=== PATIENT | female | born 1960 | race Caucasian/White ===

== ENCOUNTER 2018-04-16 08:57 | Inpatient (IN) | payer MEDICARE, MEDICAID ==
[2018-04-16 09:32] VITALS: BP 111/72
[2018-04-16] MEDS ORDERED: Magnesium Hydroxide (MOM) 30 mL UDC PO PRN (10:21)
[2018-04-16] MEDS ORDERED: Maalox 30 mL Cup PO PRN (10:21)
--- NOTE | 2018-04-16 10:40 | History & Physical ---
ADMIT DATE: 04/16/2018 MEDICAL HISTORY AND PHYSICAL PATIENT'S IDENTIFICATION: A 57-year-old female. REQUESTING PHYSICIAN: Dr. Almaraz. CHIEF COMPLAINT: "I am fine." HISTORY OF PRESENT ILLNESS: A 57-year-old female presented to [facility] by police for psychiatric evaluation, when the patient was noted to have a screaming and yelling at staff and police. The patient was placed on hold and now has been transferred to Geropsych Unit here at [facility]. PAST MEDICAL HISTORY: Negative for diabetes, hypertension, hyperlipidemia, kidney disease, or liver disease. MEDICATIONS: Currently medication list has been reviewed. ALLERGIES: The patient is not allergic to medications. SOCIAL HISTORY: She lives with a roommate. She has a history of smoking cigarette. No alcohol or drug use. FAMILY MEDICAL HISTORY: Negative for diabetes, hypertension, kidney disease, or liver disease. PAST SURGICAL HISTORY: The patient refused to say. MENSTRUAL AND GYNECOLOGIC HISTORY: The patient is menopausal. REVIEW OF SYSTEMS: The patient currently denies any headache, blurred vision, double vision, dysphagia, odynophagia, runny nose, stuffy nose, fever, chills, cough, chest pain, shortness of breath, palpitation, dizziness, nausea, vomiting, diarrhea, dysuria, hematuria, hematochezia, melena. No history of any seizure or syncopal episode. No weight loss or weight gain. PHYSICAL EXAMINATION: GENERAL: The patient is alert, awake, oriented, lying in the bed without any acute distress. VITAL SIGNS: Temperature 98.6, pulse is 74, respiratory rate 18, blood pressure 122/84. SKIN: Warm to touch. Adequate skin turgor. No petechia, no purpura. HEENT: Normocephalic, atraumatic. Extraocular muscles are intact. Tongue more pink and coated. Poor dentition noted. No oral lesion. No bleed, no sinus tenderness. External auditory canal and tympanic membranes are well visualized. NECK: Supple, no JVD, no hepatojugular reflex. No lymphadenopathy, thyromegaly or carotid bruit. HEART: Both heart sounds are regular. No S3, no S4, no murmur. CHEST AND LUNGS: Equal in expansion, no expiratory wheezing. ABDOMEN: Soft. No guarding, no rigidity. Liver, spleen palpable. No palpable mass. EXTREMITIES: No edema, no cyanosis or clubbing. Peripheral pulses +2. No calf tenderness noted. EXTERNAL GENITALIA, RECTAL EXAMINATION, BREASTS EXAMINATION: Not done at the patient request. NEUROLOGIC: Alert, awake, oriented to time, place, person. 2-12 cranial nerves are intact. Power in upper or lower extremities is 5+. Sensation to touch are intact. Babinskis in both toes are going down. No cerebellar sign. AVAILABLE DIAGNOSTIC DATA: White count of 9.2, hemoglobin 14.7, platelet count of 228. Sodium 132, potassium 3.2, chloride 102, CO2 of 29, BUN and creatinine is 8 and 0.7. Liver functions are normal. Urine drug screen was negative. Urinalysis was unremarkable. CLINICAL IMPRESSION: 1. Psychiatric disorder exacerbation. 2. Hypokalemia. 3. Microscopic hematuria. PLAN: 1. Recheck BMP. 2. Recheck urinalysis. 3. Psychiatric evaluation and management deferred to psychiatrist. 4. The patient is medically stable to participate in active Geropsych Unit. 5. The patient has been advised to see her sqe upon discharge for followup. 6. Care approved. 7. Age appropriate health maintenance has been discussed. 8. I sincerely thank you, Dr. Almaraz, for giving me the opportunity to participate the patient of yours. [facility]# [id number]
--- NOTE | 2018-04-16 16:27 | Psychiatric Evaluation ---
DATE OF SERVICE: 04/16/2018 The patient is currently in the hospital on a hold written on 04/14/2018 for danger to others, gravely disabled. The patient was disorganized, tangential, yelling and attempting to strike staff, agitated. Does not know where she is, states that her son is the assistant district attorney for [employer] and that she is "traveling" and "wandering around." CHIEF COMPLAINT: "What he wants." HISTORY OF PRESENT ILLNESS: A 57-year-old female, disoriented, confused, rambling nonsensically, placed on a hold for grave disability, danger to others, confused, disoriented, striking out behaviors, combative behaviors. States she is in the hospital to "get her meals." States, she is just passing through, going from one hospital to the next. The patient was uncooperative on initial exam, states that she can refuse medications due to the LPS act. States that her son works in [place] for president [employer]. PAST PSYCHIATRIC HISTORY: Hospitalizations in the past. SOCIAL HISTORY: "I do not know where I was born." States she has a son who is 35 who works for the president, refusing to tell me where she lives. Unclear drugs, alcohol or tobacco. MEDICATIONS: Noted. MEDICAL HISTORY: Please see full H and P. MENTAL STATUS EXAMINATION: Stated age. Fair eye contact. Speech: Mumbling to self. Mood "okay." Affect flat. Thought processes, she seemed to be disorganized, responding to internal stimuli. No SI, no HI. Insight and judgment diminished. PROVISIONAL DIAGNOSES: Schizophrenia, poor medication and treatment compliance. MEDICAL: Please see full H and P. ESTIMATED LENGTH OF STAY: 7-10 days. Pain is 8/10. ASSESSMENT: The patient is disorganized, psychotic appearing, in on a hold. PLAN: Start Risperdal. TREATMENT PLAN: Includes group as well as milieu therapy. CONDITIONS FOR DISCHARGE: Improved mood, improved affect, better control of her psychotic symptoms. JOB# [id number]
[2018-04-16 19:57] LABS: ALB/GLOB RATIO 0.9 (1.0-1.8); ALBUMIN 3.6 gm/dL (3.7-5.3); BILIRUBIN,TOTAL 0.3 mg/dL (0.3-1.0); CALCIUM SERUM 9.5 mg/dL (8.6-10.3); CARBON DIOXIDE 25.5 mEq/L (21.0-31.0); CREATININE - SERUM 1.4 mg/dL (0.6-1.2); GFR AFRICAN-AMERICAN 49.5 ml/min (>90); GFR NON AFRICAN-AMERICAN 40.9 ml/min; POTASSIUM SERUM 3.5 mEq/L (3.5-5.1); TOTAL PROTEIN,SERUM 7.5 gm/dL (6.0-8.3)
[2018-04-17] MEDS: Multivitamin Tab PO SCH (08:24)
--- NOTE | 2018-04-17 09:38 | Progress Notes ---
DATE: IDENTIFICATION: A 57-year-old female. SUBJECTIVE: The patient seen and examined. The patient is walking in the hallway. The patient remained agitated and confused. Upon questioning, the patient denies any chest pain, short of breath, palpitation, dizziness, nausea, or vomiting. OBJECTIVE: VITAL SIGNS: Temperature 97.7, pulse 80, respiratory rate 20, and blood pressure 100/56. HEENT: No facial asymmetry. NECK: Supple, no JVD. HEART: Regular. CHEST: Lung equal in expansion, no expiratory wheezing. ABDOMEN: Soft. No guarding, no rigidity. Bowel sounds present. No palpable mass. EXTREMITIES: No edema. AVAILABLE DIAGNOSTIC DATA: BUN and creatinine are 29 and 1.4, potassium 3.5, glucose 116, albumin 3.6. CLINICAL IMPRESSION: 1. Elevated BUN and creatinine, probably prerenal azotemia. Cannot rule out other etiology of chronic kidney disease. 2. Mild hyperglycemia. 3. Psychotic disorder. PLAN: 1. Encouraged to drink plenty of fluids orally. 2. Recheck BMP, magnesium, and also check glycohemoglobin A1c. 3. Psych medication and follow up as per psychiatrist. Care plan reviewed. JOB# [id number]
[2018-04-17] MEDS ORDERED: Haloperidol Lactate 5 mg/mL 1mL Vial IM ONE (11:53)
--- NOTE | 2018-04-18 06:13 | Progress Notes ---
DATE: 04/17/2018 SUBJECTIVE: The patient stuffing linens down the toilet, bizarre, symptomatic, psychotic behaviors, talking about Satan, mumbling to self, very disheveled, disorganized, psychotic appearing, gravely disabled, not making any sense, keeps mentioning the LPS act. ASSESSMENT: The patient is bizarre, stuffing linens down the toilet. The patient requiring emergency medication x 1 now, Haldol cocktail. PLAN: We will continue to monitor and initiate a 14-day hold. JOB# [id number]
[2018-04-18] MEDS: Multivitamin Tab PO SCH (08:24)
--- NOTE | 2018-04-18 18:31 | Progress Notes ---
DATE: 04/18/2018 SUBJECTIVE: The patient has been stuffing linens down the toilet. States that she does not want to talk to me because "I am LPS," refusing medications because of "LPS." Noted to be gravely disabled, bizarre. States she lives at an undisclosed location. Medications were reviewed. Poor compliance. Staff concerned about safety and she is pretty disorganized, disheveled, and unkempt. 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 ASSESSMENT: The patient is bizarre, refusing medication. Has a tendency to stop the paper towels and tissues down the toilet. PLAN: We will continue to monitor given her ongoing symptoms, she is not safe for discharge. I will likely need to file a Riese petition. JOB# [id number]
[2018-04-19] MEDS: Multivitamin Tab PO SCH (08:00)
--- NOTE | 2018-04-19 17:52 | Progress Notes ---
DATE: 04/19/2018 SUBJECTIVE: The patient states that she is not a mental health patient. When I asked her why she is here, she refers to the penal code and gives me the badge number of an officer in [place], very paranoid, bizarre, mood labile, very suspicious. 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 Gravely disabled. Poorly oriented. ASSESSMENT: The patient is psychotic, bizarre, unable to care for her basic needs, bizarre behaviors, refusing treatments. PLAN: We will continue to monitor. I did file a Riese petition. JOB# [id number]
[2018-04-20] MEDS: Multivitamin Tab PO SCH (08:25)
[2018-04-20] MEDS ORDERED: Haloperidol Lactate 5 mg/mL 1mL Vial IM PRN (09:46)
--- NOTE | 2018-04-20 21:51 | Progress Notes ---
DATE: 04/20/2018 The patient stating that she does not take medications that she is on a mental health patient, still disorganized, bizarre, mumbling to self, talking about Satan and the devil, hyper-shinto concerns that she will continue to stop linens down the toilet. The patient disorganized, making nonsensical statements clearly and grossly psychotic. ASSESSMENT AND PLAN: The patient unpredictable, paranoid, repetitive, disorganized. PLAN: Edwina mortensen. Start Haldol. JOB# [id number]
[2018-04-21] MEDS: Multivitamin Tab PO SCH (08:22)
--- NOTE | 2018-04-21 08:36 | Progress Notes ---
DATE: 04/21/2018 DATE OF SERVICE: 04/21/2018 SUBJECTIVE: The patient is currently in the hospital, psychotic, flushing linens down the toilet, hyper-yarsanism, bizarre, very paranoid, unruly behaviors. The patient required emergency medications yesterday for agitation, psychotic agitation. The patient on face just repeating "get down behind me", "get down behind me", "get down behind me" over and over again, then calling these clinicians an idiots, telling me, I have no , no friends, no life, no family, very angry, does not want take the medications. Riese was upheld. On a positive note, she slept well last night. ASSESSMENT: The patient is disheveled, unkempt, psychotic appearing, ruminative clearly, and overtly responding to internal stimuli. PLAN: We will continue to monitor. Continue Haldol. We will order in the next few days Haldol decanoate. JOB# [id number]
--- NOTE | 2018-04-21 19:29 | Progress Notes ---
DATE: 04/21/2018 DATE OF SERVICE: 04/21/2018 SUBJECTIVE: The patient seen and examined. The patient is ambulatory. The patient is alert, confused, and delusional at times. The patient has a fair appetite. The patient denies any , unable to get a meaningful history. OBJECTIVE: VITAL SINGS: Temperature 98.3, pulse 78, respiratory rate is 20, blood pressure 120/70. HEENT: No facial asymmetry. NECK: Supple, no JVD. HEART: Regular. CHEST AND LUNGS: Equal in expansion, no expiratory wheezing. ABDOMEN: Soft. No guarding, no rigidity. Bowel sounds are present. No palpable mass. EXTREMITIES: No edema, no cyanosis. NEUROLOGIC: Alert, awake. No gross neuro deficit noted. CLINICAL IMPRESSION: 1. Psychotic disorder exacerbation, currently receiving psych care. 2. History of hypokalemia and microscopic hematuria. PLAN: The patient did have elevated creatinine of 1.4. We will reevaluate BMP and urinalysis and will give further recommendations. Care plan reviewed and discussed. JOB# [id number]
[2018-04-22] MEDS: Multivitamin Tab PO SCH (08:52)
--- NOTE | 2018-04-23 02:44 | Progress Notes ---
DATE: 04/22/2018 SUBJECTIVE: The patient in the hospital, disorganized, paranoid, delusional. The patient was talking about the devil yesterday, calmer today, "doctor I hope you have a good day", isolative, withdrawn, still mumbling to self, talking to self, observed to be mumbling to self, touching unseen objects on the floor. The patient states her name is Elida not Yenifer as Yenifer. The patient is believing there is a cat on the floor. ASSESSMENT: The patient is bizarre, delusional, psychotic. PLAN: We will continue to monitor. Initiate Haldol decanoate today. Given her ongoing symptoms, she is quite bizarre and psychotic, unable to be cared for at a lower level of care due to her gross psychotic symptoms. JOB# [id number]
[2018-04-23] MEDS: Multivitamin Tab PO SCH ×2 (08:39→09:09)
--- NOTE | 2018-04-23 15:00 | Progress Notes ---
DATE: 04/23/2018 SUBJECTIVE: The patient is calmer, states "you look very nice today doctor". The patient is still talking about the devil, noting that the voices do not talk to her too much, "The devil does not talk to me too much." The patient getting Haldol Decanoate. Still does not know where she lives, still touching unseen objects, psychotic appearing, but significantly calmer, seems less distressed by perceptual disturbances, more open to giving me information about where she lives, noting that she had been staying in [place], currently now in [place] for some unclear reason. ASSESSMENT: The patient internally preoccupied, disorganized, poor historian, but significantly calmer, more amenable to treatment. Medications were noted. No EPS Continue Haldol. JOB# [id number]
[2018-04-24] MEDS: Multivitamin Tab PO SCH (09:01)
--- NOTE | 2018-04-24 11:21 | Progress Notes ---
DATE: 04/24/2018 SUBJECTIVE: The patient in the hospital, noted to be somewhat brighter, asking to leave, states she has a home to go to, but wants to be homeless discharge. States she is on vacation in [place], wandering in the streets, bizarre, poorly oriented, preoccupied, mumbling to self and guarded about her address "that is personal." The patient remains impulsive, unpredictable, given her ongoing psychotic symptoms. The patient did get Haldol Decanoate seems to be showing signs of improvement. ASSESSMENT: The patient is paranoid, still bizarre, odd. Medications were noted. We will continue to monitor, titrate medications, adjust medications. [facility]# [id number]
[2018-04-25] MEDS: Multivitamin Tab PO SCH (08:18)
--- NOTE | 2018-04-25 16:32 | Progress Notes ---
DATE: 04/25/2018 SUBJECTIVE: The patient with ongoing psychotic symptoms, talking about the transit authority police officer in [place] bringing her here, nonsensical, ruminative, paranoid, suspicious, wandering behaviors, impulsive, unpredictable, gravely disabled. ASSESSMENT: The patient remains symptomatic, paranoid, bizarre. PLAN: We will continue to monitor. The patient will likely benefit from dose titration of Haldol. We will increase her dosing from 5-7 mg twice daily. [facility]# [id number]
[2018-04-26] MEDS: Multivitamin Tab PO SCH (08:07)
--- NOTE | 2018-04-26 10:34 | Progress Notes ---
DATE: 04/26/2018 The patient mumbling to self, delusional, bizarre, that she has been attacked by multiple staff members, responding to internal stimuli, asking for the LPS book, highly delusional, seems to be responding heavily to internal stimuli, disheveled, unkempt. ASSESSMENT: The patient remains symptomatic, bizarre, gravely disabled, grossly psychotic. PLAN: We will continue to monitor. We will increase her Haldol dosing today. JOB# [id number]
[2018-04-26] MEDS: HALOPERIDOL PO SCH (16:25)
[2018-04-27 07:57] LABS: CHOLESTEROL 172 mg/dL (<200); HDL -HIGH DENSITY LIPOPROTEIN 51 mg/dL (23-92); TRIGLYCERIDES 98 mg/dL (<150)
[2018-04-27] MEDS: Multivitamin Tab PO SCH (08:50)
[2018-04-27] MEDS: HALOPERIDOL PO SCH (08:51)
--- NOTE | 2018-04-27 14:43 | Progress Notes ---
DATE: 04/27/2018 SUBJECTIVE: The patient remains symptomatic, psychotic, trying to flood the toilet, acting bizarre, ongoing concerns about her psychosis. States that she plans to walk [place], going into other patients' rooms, acting strange, disoriented. ASSESSMENT: The patient bizarre, flooding the toilet, requiring a lot of staff intervention. PLAN: We will continue to monitor, increase dosing of Haldol today. We will initiate Depakote. We will give another shot of Haldol decanoate. JOB# [id number]
[2018-04-27] MEDS: Benztropine 1 MG TAB PO SCH (16:14)
[2018-04-28] MEDS: Multivitamin Tab PO SCH (08:47)
[2018-04-28] MEDS: Benztropine 1 MG TAB PO SCH ×2 (08:47→16:21)
--- NOTE | 2018-04-28 21:33 | Progress Notes ---
DATE: 04/28/[address] Almaraz. IDENTIFING DATA: This is a 57-year-old female who presented with psychotic and disorganized. Today on [id number] evaluation, the patient continues to perseverate on 2 phrases fornication and blood when attempting to discuss with her what she means by that. She perseverates about fornication and blood with intense stare and then goes back to her room. MENTAL STATUS EXAMINATION: Bizarre, psychotic, delusional, ruminating about random psychotic symptoms. ASSESSMENT AND PLAN: Yenifer Ocasio with history of schizophrenia. We will continue monitor and evaluate a lot, especially with the recent increase of the Haldol, which was increased yesterday and Depakote was initiated depending on Haldol taken. JOB# [id number]
[2018-04-29] MEDS: Benztropine 1 MG TAB PO SCH ×2 (09:01→16:10)
[2018-04-29] MEDS: Multivitamin Tab PO SCH (09:01)
--- NOTE | 2018-04-29 17:36 | Progress Notes ---
DATE: 04/29/2018 The patient was seen and evaluated. The patient's chart reviewed. Dr. Max covering for Dr. Almaraz. Today, nursing staff reported the patient refused her medications, especially the Depakote. Today on [id number] evaluation, the patient and then starts screaming at the psychiatrist saying that she needs to be released. When attempting to redirect her emotions, she starts derailing and making disorganized thought process. MENTAL STATUS EXAMINATION: Disorganized, bizarre, delusional, ruminating random psychotic thoughts. ASSESSMENT AND PLAN: Yenifer Ocasio with a history of schizophrenia continues to be psychotic and disorganized. We will continue with the current medication regimen, which includes Cogentin 1 mg p.o. b.i.d., Depakote 500 mg p.o. b.i.d., haloperidol 10 mg b.i.d., and of the Haldol Decanoate, which was given on the 04/22/2018. No side effects of medications. No EPS. No tardive dyskinesia. JOB# [id number]
[2018-04-30] MEDS: Benztropine 1 MG TAB PO SCH ×2 (09:55→17:45)
[2018-04-30] MEDS: Multivitamin Tab PO SCH (09:55)
--- NOTE | 2018-04-30 19:41 | Progress Notes ---
DATE: 04/30/2018 SUBJECTIVE: The patient currently still very upset, bizarre, stating that she saw this clinician yesterday in a movie. She has no place to go, demanding bus tokens, still responding to internal stimuli, gets agitated at times. Currently, concerns about grave disability, paranoia, disorganized, unpredictable, talking to herself, mostly keeps to herself in her room. ASSESSMENT: The patient rambling about different topics. "For indications" stating things about "blood." Needs prompting for ADLs. No overt unclear plan for discharge. PLAN: We will continue to monitor, continue Mandy Reese with ____. [facility]# [id number]
[2018-05-01] MEDS: Multivitamin Tab PO SCH (09:12)
[2018-05-01] MEDS: Benztropine 1 MG TAB PO SCH ×2 (09:12→17:20)
--- NOTE | 2018-05-01 15:17 | Progress Notes ---
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 The patient is bizarre, nonsensical, making odd statements. Currently on high doses of Haldol. The patient may be approaching her baseline. She is pretty grandiose, stating that she is on vacation. Better ADLs. She is less distracted and mildly more organized, but still making some bizarre statements. Medications were noted. PLAN: I will continue to monitor. We will check a Depakote level. Titrate dosing as needed. JOB# [id number]
[2018-05-02] MEDS: Multivitamin Tab PO SCH (09:26)
[2018-05-02] MEDS: Benztropine 1 MG TAB PO SCH ×2 (09:26→16:19)
--- NOTE | 2018-05-02 11:31 | Discharge Summary ---
DATE OF DISCHARGE: 05/02/2018 JUSTIFICATION FOR HOSPITALIZATION: Disorganized, tangential, yelling, bizarre. HISTORY OF PRESENT ILLNESS: A 57-year-old female, disoriented, confused, rambling, talking about the devil, stating she is on vacation, talking about the LPS rules stating that she works for a company in [place] giving me a badge number, bizarre, stating she works for president [employer]. PAST PSYCHIATRIC HISTORY: She lives hospitalizations in the past. SOCIAL HISTORY: It seems she may be homeless. MEDICATIONS: Noted. FAMILY HISTORY: Unclear. PAST MEDICAL HISTORY: Please see full H and P. MENTAL STATUS EXAMINATION: Please see full psych eval for details. PROVISIONAL DIAGNOSES: Schizophrenia, poor medication and treatment compliance. Under medical, please see full H and P. HOSPITAL COURSE: After initial assessment, the patient was placed on medications including Risperdal, which she refused. The Riese petition was filed on a 14-day hold, it was upheld, suicide on Haldol and Haldol Decanoate. Haldol was titrated. Over the course of the hospitalization, the patient was calmer, more med compliant. She remained somewhat delusional about working for a company in [place]. She remained delusional while being on vacation and having homes. However, she was not agitated. She was not combative. She was not violent. She was not aggressive. She was no longer trying for example overflow the toilet. She was not aggressive. No dangerousness noted. Sleeping well, eating well, taking her medications. She was also agreeable to placement on 05/02/2018. Placement was confirmed and she was discharged, eating on her own volition, bath remains on her own volition, appropriately dressed and groomed. CONDITION UPON DISCHARGE: Improved. Fair ADLs. Poor dentition. Psychomotorically normal. Mood "fine" ____. Affect constricted. Thought processes were tangential. No SI, no HI. No overt auditory or visual hallucinations. She did remain somewhat delusional about owning homes and being on vacation and working for a company, but this did not manifest to any dangerous behaviors, impulse control better, insight better, judgment better. She is taking medications. DISCHARGE DIAGNOSIS: Schizophrenia. Under medical, please see full H and P. PROGNOSIS: The patient follows up with outpatient mental health services and remains compliant with her treatment. Prognosis will improve, otherwise guarded. [facility]# [id number]
== END 2018-05-02 17:15 | DRG 885 ==
LOC: GERO2 08:57 → GERO 21:12
PROVIDERS: ADMIT Psychiatry & Neurology Psychiatry; ATTEND Psychiatry & Neurology Psychiatry
DX: F20.9 Schizophrenia, unspecified (principal); E87.6 Hypokalemia; R73.9 Hyperglycemia, unspecified; R31.29 Other microscopic hematuria; Z87.891 Personal history of nicotine dependence
CPT/HCPCS: 36415-UA; 80053-TC; 80061-TC; 80164-TC; 83036-90; G0410; J1200; J1630; J1631; J2060; Z7610